=== PATIENT | female | born 1950 | race Caucasian/White ===

== ENCOUNTER 2021-02-25 12:24 | Emergency (ER) | payer OTHER ==
[~2021-02-25 12:24] MED LIST: ASPIRIN81 MG PO; BACLOFEN 10MG T10 MG PO; CLARITIN5 MG PO; CYMBALTA 30MG C30 MG PO; DUONEB 2.5-0.5M1 AMP INH; DUONEB 2.5-0.5M1 AMP NEB; LEVAQUIN500 MG PO; LODINE400 MG PO; NAPROXEN500 MG PO; NEURONTIN100 MG PO; PLAVIX75 MG PO; PREDNISONE 20MG20 MG PO; PREDNISONE50 MG PO; PRILOSEC20 MG PO; PROTONIX 40MG T40 MG PO; TRAMADOL HCL50 MG PO; VENTOLIN HFA IN18 GM INH; VIBRAMYCIN100 MG PO; ZOCOR40 MG PO
== END 2021-02-25 16:48 | disposition home or self-care (01) ==
LOC: FER 12:24
DX: S66.412A Strain of intrinsic muscle, fascia and tendon of left thumb at wrist and hand level, initial encounter (principal); J44.9 Chronic obstructive pulmonary disease, unspecified; W19.XXXA Unspecified fall, initial encounter; Y92.009 Unspecified place in unspecified non-institutional (private) residence as the place of occurrence of the external cause
CPT/HCPCS: 73130